=== PATIENT | male | born 1990 | race Caucasian/White ===

== ENCOUNTER 2017-04-26 21:14 | Emergency (ER) | payer OTHER ==
[2017-04-26 21:55] VITALS: RESP 18
[2017-04-26 22:07] LABS: BASO % 0.5 % (0.0-2.0); EOS # 0.1 K/uL (0.0-0.7); EOS % 1.1 % (0.0-4.0); HEMATOCRIT 42.3 % (35.0-51.0); LYMPH # 3.5 K/uL (1.0-4.3); LYMPH % 47.7 % (20.0-40.0); MEAN CELL VOLUME 89.5 fL (80.0-94.0); MEAN CORPUSCULAR HGB CONC 34.7 g/dL (33.0-37.0); MEAN PLATELET VOLUME 8.4 fL (7.2-11.7); MONO # 0.4 K/uL (0.0-0.8); MONO % 6.1 % (0.0-10.0); NRBC % 0.1 % (0.0-2.0); RED CELL DISTRIBUTION WIDTH 13.1 % (11.5-14.5); WHITE BLOOD COUNT 7.2 K/uL (4.8-10.8)
[2017-04-26 22:16] LABS: ALKALINE PHOSPHATASE 84 U/L (38-126); ALT/SGPT 57 U/L (21-72); AST/SGOT 34 U/L (17-59); BILIRUBIN,TOTAL 0.6 mg/dL (0.2-1.3); BLOOD UREA NITROGEN 13 mg/dL (9-20); CALCIUM 8.5 mg/dl (8.6-10.4); CARBON DIOXIDE 27 mmol/L (22-30); CHLORIDE 99 mmol/L (98-107); GFR AFRICAN-AMERICAN > 60; GLUCOSE,RANDOM 96 mg/dL (75-110); POTASSIUM 3.5 mmol/L (3.6-5.2); SODIUM 136 mmol/L (132-148); TOTAL PROTEIN 8.6 g/dL (6.3-8.3)
[2017-04-26 22:19] LABS: ALB/GLOB RATIO 1.2 (1.0-2.1)
--- NOTE | 2017-04-26 22:49 | C.PDOC ---
History Of Present Illness Patient presents to ED with complaints of abdominal pain, nausea and vomiting that started today. Patient states he had episodes of emesis causing decreased PO intake. Patient's last meal was eggs and hotdogs. Denies fever, chills or diarrhea. Time Seen by Provider: 04/26/17 22:49 Chief Complaint (Nursing): Abdominal Pain History Per: Patient History/Exam Limitations: no limitations Onset/Duration Of Symptoms: Hrs (Today) Current Symptoms Are (Timing): Still Present Severity: Mild Pain Scale Rating Of: 3 Radiation Of Pain To:: None Quality Of Discomfort: Unable To Describe Associated Symptoms: Nausea, Vomiting, Other (Abdominal pain). denies: Fever, Chills, Diarrhea Exacerbating Factors: None Alleviating Factors: None Recent travel outside of the [place]: No Additional History Per: Family Past Medical History Reviewed: Historical Data, Nursing Documentation, Vital Signs Vital Signs: Last Vital Signs Temp 98.4 F 04/26/17 21:51 Pulse 88 04/26/17 21:51 Resp 18 04/26/17 21:51 BP 120/78 04/26/17 21:51 Pulse Ox 97 04/26/17 23:24 - Medical History PMH: No Chronic Diseases Surgical History: No Surg Hx Family History: States: No Known Family Hx - Social History Hx Alcohol Use: No Hx Substance Use: No - Immunization History Hx Tetanus Toxoid Vaccination: No Hx Influenza Vaccination: No Hx Pneumococcal Vaccination: No Review Of Systems Constitutional: Negative for: Fever, Chills Cardiovascular: Negative for: Chest Pain Respiratory: Negative for: Shortness of Breath Gastrointestinal: Positive for: Nausea, Vomiting, Abdominal Pain. Negative for : Diarrhea Musculoskeletal: Negative for: Back Pain Skin: Negative for: Rash Neurological: Negative for: Weakness Psych: Negative for: Anxiety Physical Exam - Physical Exam Appears: Non-toxic, Other (Awake and alert) Skin: Warm, Dry Head: Normacephalic Eye(s): bilateral: Normal Inspection Oral Mucosa: Moist Throat: No Erythema Neck: Supple Chest: Symmetrical, No Tenderness Cardiovascular: Rhythm Regular Respiratory: No Rales, No Rhonchi, No Wheezing Gastrointestinal/Abdominal: Soft, Distention, Other (Tympanic percussion ) Extremity: Normal ROM Extremity: Bilateral: Atraumatic Pulses: Left Dorsalis Pedis: Normal, Right Dorsalis Pedis: Normal Neurological/Psych: Oriented x3 Gait: Steady ED Course And Treatment - Laboratory Results Result Diagrams: 04/26/17 21:58 04/26/17 21:58 O2 Sat by Pulse Oximetry: 97 (Room Air) Pulse Ox Interpretation: Normal Progress Note: Ordered blood work. Administered Reglan, Zofran Inj, Protonix Inj , and IV fluids. Reevaluation Time: 23:52 Reassessment Condition: Improved Disposition Counseled Patient/Family Regarding: Studies Performed, Diagnosis, Need For Followup, Rx Given - Disposition Referrals: Jalyn Mcdermott MD [Staff Provider] - Disposition: HOME/ ROUTINE Disposition Time: 22:49 Condition: FAIR Additional Instructions: Please return if symptoms recur Prescriptions: Ondansetron ODT [Zofran ODT] 1 odt PO BID PRN #6 odt PRN Reason: Nausea/Vomiting Pantoprazole Sodium [Protonix] 20 mg PO DAILY #14 ect Instructions: Acute Nausea and Vomiting (ED), Abdominal Pain (ED), Gastroesophageal Reflux Disease (ED) Forms: [employer] Plan (Georgian) - Clinical Impression Clinical Impression: Abdominal pain, Nausea, Vomiting, GERD (gastroesophageal reflux disease) - Scribe Statement The provider has reviewed the documentation as recorded by the Scribe Jair Macias All medical record entries made by the Scribe were at my direction and personally dictated by me. I have reviewed the chart and agree that the record accurately reflects my personal performance of the history, physical exam, medical decision making, and the department course for this patient. I have also personally directed, reviewed, and agree with the discharge instructions and disposition.
[2017-04-26] MEDS ORDERED: Lactated Ringer's 1,000 ML IV ONE (22:56)
[2017-04-26] MEDS ORDERED: Lactated Ringer's 1,000 ML ONE (23:06)
[2017-04-27 00:23] VITALS: BP 109/69; PULSE 81; TEMP 98.5; O2SAT 100
== END 2017-04-27 00:20 | disposition home or self-care (01) ==
LOC: C.ER 21:14
DX: K21.9 Gastro-esophageal reflux disease without esophagitis (principal); R11.2 Nausea with vomiting, unspecified; R10.9 Unspecified abdominal pain
CPT/HCPCS: 80053; 83690; 85025; 96361; 96374; 96375; 99284; C9113; J2405; J2765; J7120